=== PATIENT | female | born 1965 | race Hispanic/Latino ===

== ENCOUNTER 2017-02-22 18:06 | Emergency (ER) | payer BC ==
[2017-02-22 18:27] VITALS: BP 160/98; RESP 20; TEMP 98; O2SAT 98
--- NOTE | 2017-02-22 19:22 | ED PDOC ---
HPI: General Adult Time Seen by Provider: 02/22/17 18:30 Chief Complaint (Nursing): Dizziness/Lightheaded Chief Complaint (Provider): Palpitation History Per: Patient History/Exam Limitations: no limitations Onset/Duration Of Symptoms: Hrs Have you had recent travel within the past 21 days to any of the following countries: [place], [place], [place] or [place]?: No Current Symptoms Are (Timing): Still Present Severity: Moderate Additional History Per: Patient Additional Complaint(s): The pt is a 51yo female with no significant PMHx, presents to the ED for evaluation of chest palpitations present for the past couple hours. Pt reports she was exercising today after a long time period and was on a treadmill with a steep incline for about 45 minutes. She states she noticed her heart rate was around 140s and she felt chest palpitations after which she got off the treadmill and reports her palpitations were present 30-45 minutes after she ended her exercise. She denies any chest pain or light headedness. Of note, pt reports she ate less than normal and drank less than normal as well. She currently, offers no additional medical complaints. Past Medical History Reviewed: Historical Data, Nursing Documentation, Vital Signs Vital Signs: Last Vital Signs Temp 98 F 02/22/17 18:24 Pulse 91 H 02/22/17 19:35 Resp 20 02/22/17 19:35 BP 160/98 H 02/22/17 18:24 Pulse Ox 98 02/22/17 19:25 - Medical History PMH: No Chronic Diseases - Surgical History Surgical History: No Surg Hx - Family History Family History: States: No Known Family Hx Denies: CAD, Hypertension - Living Arrangements Living Arrangements: With Family - Home Medications Home Medications: Ambulatory Orders Medication Instructions Recorded No Known Home Med 02/22/17 - Allergies Allergies/Adverse Reactions: Allergies Allergy/AdvReac Type Severity Reaction Status Date / Time No Known Allergies Allergy Verified 02/22/17 18:24 Review of Systems ROS Statement: Except As Marked, All Systems Reviewed And Found Negative Cardiovascular: Positive for: Palpitations. Negative for: Chest Pain Neurological: Negative for: Dizziness Physical Exam - Reviewed Nursing Documentation Reviewed: Yes Vital Signs Reviewed: Yes - Physical Exam Appears: Positive for: Well, Non-toxic, No Acute Distress Head Exam: Positive for: ATRAUMATIC, NORMAL INSPECTION, NORMOCEPHALIC Skin: Positive for: Normal Color, Warm, DRY Eye Exam: Positive for: Normal appearance, EOMI, PERRL Neck: Positive for: Normal, Supple Cardiovascular/Chest: Positive for: Regular Rate, Rhythm Respiratory: Positive for: Normal Breath Sounds. Negative for: Respiratory Distress Gastrointestinal/Abdominal: Positive for: Normal Exam, Soft Back: Positive for: Normal Inspection Neurologic/Psych: Positive for: Alert, Oriented - Laboratory Results Result Diagrams: 02/22/17 19:35 02/22/17 19:35 - ECG ECG: Positive for: Interpreted By Me, Viewed By Me ECG Rhythm: Positive for: Normal QRS, Normal ST Segment, Sinus Rhythm. Negative for: ST/T Changes Rate: 85 O2 Sat by Pulse Oximetry: 98 (RA) Pulse Ox Interpretation: Normal Medical Decision Making Medical Decision Making: Time: 1849 Impression: Resolved arrhythmia vs. sinus tachycardia secondary to exercise and deconditioning Plan: -- BMP -- Troponin -- CBC -- CXR --Reassess 2030 Discussed results wiht patient and gave copy of results. Explained that today' s incident was likely not primary cardiac but likely 2/2 to combination of dehydration, decreased PO intake, deconditioning, and stress/anxiety. Told to purchase pulse ox and measure HR and if still elevated tomorrow to call PMD in [facility]. Return precuations given: CP, SOB, worsening palpitations, etc. Given referral to cards. Scribe Attestation: Documented by Kaya Bee acting as a scribe for Dereck Lacey MD. Provider Attestation: All medical record entries made by the Scribe were at my direction and personally dictated by me. I have reviewed the chart and agree that the record accurately reflects my personal performance of the history, physical exam, medical decision making, and the department course for this patient. I have also personally directed, reviewed, and agree with the discharge instructions and disposition. Disposition - Clinical Impression Clinical Impression: Palpitations - Disposition Referrals: Weston Beasley MD [Staff Provider] - Disposition Time: 20:30 Condition: STABLE Instructions: Palpitations (ED)
[2017-02-22 19:56] LABS: BASO # 0.1 K/uL (0.0-0.2); BASO % 0.8 % (0.0-2.0); EOS % 0.1 % (0.0-4.0); HEMATOCRIT 41.9 % (34.0-47.0); LYMPH # 0.8 K/uL (1.0-4.3); MEAN CELL VOLUME 92.2 fl (81.0-99.0); MEAN CORPUSCULAR HEMOGLOBIN 30.5 pg (27.0-31.0); MEAN CORPUSCULAR HGB CONC 33.1 g/dL (33.0-37.0); MEAN PLATELET VOLUME 9.4 fl (7.2-11.7); MONO # 0.3 K/uL (0.0-0.8); MONO % 5.1 % (0.0-10.0); NEUT # 5.2 K/uL (1.8-7.0); RED CELL DISTRIBUTION WIDTH 13.9 % (11.5-14.5); WHITE BLOOD COUNT 6.4 K/uL (4.8-10.8)
[2017-02-22 20:07] LABS: BLOOD UREA NITROGEN 19 mg/dl (7-17); CALCIUM 9.7 mg/dL (8.4-10.2); CARBON DIOXIDE 24 mmol/L (22-30); CHLORIDE 104 mmol/L (98-107); GFR AFRICAN-AMERICAN > 60; GLUCOSE,RANDOM 102 mg/dL (65-105); POTASSIUM 4.2 MMOL/L (3.6-5.0); SODIUM 144 mmol/l (132-148)
[2017-02-22 21:15] VITALS: PULSE 85
--- NOTE | 2017-02-23 09:44 | RAD ---
HISTORY: palpitations COMPARISON: No prior. TECHNIQUE: Chest PA and lateral FINDINGS: LUNGS: The lungs are hyperinflated. There is no focal consolidation. PLEURA: No significant pleural effusion identified. No pneumothorax apparent. CARDIOVASCULAR: Normal. OSSEOUS STRUCTURES: No significant abnormalities. VISUALIZED UPPER ABDOMEN: Normal. OTHER FINDINGS: None. IMPRESSION: Pulmonary hyperinflation. No active pulmonary disease.
== END 2017-02-22 21:23 | disposition home or self-care (01) ==
LOC: H.ER 18:06
DX: R00.2 Palpitations (principal); R42 Dizziness and giddiness